=== PATIENT | female | born 1970 | race Caucasian/White ===

== ENCOUNTER 2017-08-12 12:24 | Inpatient (IN) | payer MEDICAID ==
[~2017-08-12] VITALS: Ht 152.4 cm; Wt 77.6 kg
[2017-08-12 12:26] VITALS: BP 130/68
--- NOTE | 2017-08-12 12:31 | NUR ---
46/F BIB C/O EPIGASTRIC PAIN AND NAUSEA X 1 MONTH CRAMPS. BRIGHT RED BLOOD PER RECTUM X 5 DAYS. PT STS HAS HX OF HEMORRHEIDSDENIES N/V/D; SKIN IS PINK/WARM/DRY; AAOX4 WITH EVEN AND STEADY GAIT; LUNGS CLEAR BL; HR EVEN AND REGULAR; PT DENIES ANY FEVER, CP, SOB, OR COUGH AT THIS TIME; PATIENT STATES PAIN OF 10/10 AT THIS TIME; PATIENT POSITIONED FOR COMFORT; HOB ELEVATED; BEDRAILS UP X2; BED DOWN. ER MD MADE AWARE OF PT STATUS.
--- NOTE | 2017-08-12 13:28 | NUR ---
LAB AT BEDSIDE.
--- NOTE | 2017-08-12 13:38 | NUR ---
PT C/O ABD PAIN 07/31; NOTIFIED DR WOOD.
[2017-08-12] MEDS ORDERED: oxyCODONE/APAP 5/325 MG 1 TAB TAB PO ONE (13:40)
--- NOTE | 2017-08-12 13:44 | NUR ---
GAVE PERCOCET 5/325 MG X 2 TABS PO FOR ABD PAIN.
--- NOTE | 2017-08-12 13:45 | NUR ---
PT TAKEN TO CT VIA GUNATY, ACCOMPANIED BY COMPLIANCE ADMINISTRATOR.
--- NOTE | 2017-08-12 13:45 | NUR ---
Osito romo in EDM - 08/12/17 at 1412 by MED1 PT TAKEN TO CT VIA W/C, ACCOMPANIED BY JAVA LEAD ENGINEER.
[2017-08-12 13:53] LABS: APPEARANCE,URINE CLEAR (CLEAR); BILIRUBIN,URINE NEGATIVE (NEGATIVE); BLOOD, URINE NEGATIVE (NEGATIVE); COLOR,URINE YELLOW (YELLOW); LEUKOCYTE ESTERASE ,URINE NEGATIVE (NEGATIVE); NITRITE, URINE NEGATIVE (NEGATIVE); UGLUCOSE 3+ (NEGATIVE)
[2017-08-12 13:55] LABS: BASOPHILS # (AUTO) 0.3 K/uL (0.00-0.22); BASOPHILS % (AUTO) 4.3 % (0.0-2.0); EOSINOPHILS # (AUTO) 0.2 K/uL (0-0.4); EOSINOPHILS % (AUTO) 3.1 % (0.0-4.0); HEMATOCRIT 42.3 % (36-48); HEMOGLOBIN 14.2 g/dL (12.0-16.0); LYMPHOCYTES # (AUTO) 2.6 K/uL (2.5-16.5); LYMPHOCYTES % (AUTO) 42.1 % (20.5-51.1); MEAN CORPUSCULAR HEMOGLOBIN 30 pg (27-31); MEAN CORPUSCULAR HGB CONC 34 g/dL (33-37); MEAN CORPUSCULAR VOLUME 91 fL (80-94); MONOCYTES # (AUTO) 0.4 K/uL (0.8-1.0); MONOCYTES % (AUTO) 7.4 % (1.7-9.3); NEUTROPHILS # (AUTO) 2.6 K/uL (1.8-7.7); NEUTROPHILS % (AUTO) 43.1 % (42.2-75.2); PLATELET COUNT (AUTO) 264 K/uL (140-450); RED BLOOD CELL COUNT(AUTO) 4.67 MIL/uL (4.20-5.40); RED CELL DISTRIBUTION WIDTH 12.9 % (11.6-13.7); WHITE BLOOD COUNT (AUTO) 6.1 K/uL (4.8-10.8)
[2017-08-12 14:00] LABS: CARBON DIOXIDE 28.1 mmol/L (21-32); CREATININE 0.7 mg/dL (0.6-1.3); POTASSIUM 4.1 mmol/L (3.5-5.1)
[2017-08-12 14:06] LABS: ALBUMIN 3.4 g/dL (3.4-5.0); TOTAL BILIRUBIN 0.3 mg/dL (0.0-1.0)
--- NOTE | 2017-08-12 14:11 | NUR ---
PT BACK FROM CT VIA ONIEL, ACCOMPANIED BY WIPING RAG WASHER.
[2017-08-12] MEDS: NACL 0.9% 1,000 ML IV SCH ×2 (15:05→23:46)
[2017-08-12] MEDS ORDERED: DOCUSATE SODIUM 100 MG GELCAP PO PRN (15:05)
[2017-08-12] MEDS ORDERED: ACETAMINOPHEN 325 MG TAB PO PRN (15:05)
[2017-08-12] MEDS ORDERED: ONDANSETRON 4 MG/2 ML VIAL IM/IVP PRN (15:05)
[2017-08-12] MEDS ORDERED: HYDROcodone/APAP 7.5/325 MG 1 TAB PO PRN (15:05)
[2017-08-12] MEDS ORDERED: MORPHINE SULFATE 2 MG/ML SYR IVP PRN (15:05)
--- NOTE | 2017-08-12 15:22 | NUR ---
Patient will be admitted to care of DR HENDERSON. Admited to TELE. Will go to room 111B. Belongings list completed. Report to URSULA PENDLETON.
[2017-08-12] MEDS ORDERED: PANTOPRAZOLE 40 MG TABEC PO SCH (15:40)
[2017-08-12 15:45] VITALS: BP 132/84
--- NOTE | 2017-08-12 15:45 | NUR ---
RECEIVED PT VIA GURNEY, PT IS AMBULATORY A/OX4, PT HAS IV ON THE LEFT FA, PATENT, INTACT, FLUSHING WELL, SKIN IS INTACT, NO S/S OF RESPIRATORY DISTRESS OR DISCOMFORT NOTED, ORIENTED PT TO ROOM, DISCUSSED PLAN OF CARE WITH PT, PT VERBALIZED UNDERSTANDING, SAFETY/FALL PRECAUTIONS ARE IN PLACE, PATIENT'S IS AT BEDSIDE, CALL LIGHT WITHIN REACH, WILL CONTINUE TO MONITOR.
[2017-08-12 15:52] LABS: PROTHROMBIN TIME 9.8 secs (10.8-13.4)
[2017-08-12 16:10] LABS: CHOL/HDL RATIO 5.9 (1-4.5); FREE T4 (FREE THYROXINE) 0.87 ng/dL (0.76-1.46); MAGNESIUM 1.6 mg/dL (1.8-2.4); PHOSPHORUS 3.5 mg/dL (2.5-4.9); THYROID STIMULATING HORMONE 0.8 uIU/mL (0.34-3.74)
--- NOTE | 2017-08-12 16:30 | NUR ---
NOTIFIED DR. GREEN THE PATIENT WAS BRADYCARDIC, DR. GREEN SAID HE WOULD PUT IN ORDER FOR EKG AND CHEST XRAY.
[2017-08-12] MEDS ORDERED: DEXTROSE 50% 50 ML SYR IVP PRN (16:40)
--- NOTE | 2017-08-12 17:00 | NUR ---
PT IS RESTING IN BED, AT THIS TIME, CALL Addendum: 08/12/17 at 7 by Elsie Luke RN PT IS RESTING IN BED AT THIS TIME, CALL LIGHT IS WITHIN REACH.
[2017-08-12] MEDS ORDERED: MECLIZINE 25 MG TAB PO PRN (17:05)
[2017-08-12] MEDS ORDERED: ALBUTEROL 0.083% 2.5 MG/3 ML NEBU INH SCH (19:00)
[2017-08-12] MEDS ORDERED: ALBUTEROL 0.083% 2.5 MG/3 ML NEBU INH PRN (19:00)
--- NOTE | 2017-08-12 19:30 | NUR ---
ENDORSED PT TO LAUNDRY PRESSER NURSE FOR CONTINUITY OF CARE, PT STABLE AT THIS TIME, FAMILY IS AT PT BEDSIDE.
--- NOTE | 2017-08-12 19:32 | NUR ---
RECEIVED REPORT FROM AM NURSE. PT IS AAOX4, FAMILY AT THE BEDSIDE. NO SIGNS OF ACUTE DISTRESS. ON ROOM AIR, AND TELE MONITOR. SKIN TEMPERATURE WARM TO TOUCH. IV ACCESS ASYMPTOMATIC, PATENT AND INTACT. PT IS AMBULATORY. BED ON LOW POSITION, BILATERAL HALF SIDE RAILS UP, CALL LIGHT WITHIN REACH, WILL CONTINUE TO MONITOR.
[2017-08-12 20:00] VITALS: BP 105/63
--- NOTE | 2017-08-12 20:00 | NUR ---
NOTIFIED BY RT ROVERTO OF ECG RESULTS. ABNORMAL ECG WITH POSSIBLE ANTERIOR INFARCT. DR GUSMAN NOTIFIED BY ROVERTO. PER ROVERTO (RT) DR GUSMAN STATED RESULTS ARE FINE, AND NOTHING NEEDED AT THIS TIME.
--- NOTE | 2017-08-12 20:30 | NUR ---
PT UPSET START CRYING IN THE ROOM, WORRY ABOUT HER HEALTH, AT BED SIDE.PLACED PT ON 2 L NC , PT WANTS TO SLEEP, BS ARE BILAT CLEAR AT THIS TIME
[2017-08-12] MEDS: BLOOD GLUCOSE MONITORING 1 DEV DEV FS SCH (20:57)
[2017-08-12] MEDS: ATORVASTATIN 20 MG TAB PO SCH (21:01)
[2017-08-12] MEDS: MAGNESIUM OXIDE 400 MG TAB PO SCH (21:01)
[2017-08-12] MEDS: INSULIN LISPRO SLIDING SCALE 100 UNITS/ML VIAL SUBQ PRN (21:06)
[2017-08-13] VITALS (9 sets, daily range): BP systolic 93–154; BP diastolic 47–86
--- NOTE | 2017-08-13 00:52 | NUR ---
PT IS SLEEPING, EASY TO AROUSE. NO SIGNS OF ACUTE DISTRESS. BED IN LOW POSITION, BILATERAL HALF SIDE RAILS UP, CALL LIGHT WITHIN REACH, WILL CONTINUE TO MONITOR.
[2017-08-13] MEDS: ALBUTEROL SULFATE/IPRATROPIU 3 ML SOL IH SCH ×4 (01:00→19:17)
--- NOTE | 2017-08-13 02:39 | NUR ---
PT IS SLEEPING, EASILY AROUSABLE. NO SIGNS OF ACUTE DISTRESS NOTED, BED IN LOW POSITION, BILATERAL HALF SIDE RAILS UP, CALL LIGHT WITHIN REACH, WILL CONTINUE TO MONITOR.
[2017-08-13] MEDS: BLOOD GLUCOSE MONITORING 1 DEV DEV FS SCH ×4 (06:39→21:16)
[2017-08-13] MEDS: INSULIN LISPRO SLIDING SCALE 100 UNITS/ML VIAL SUBQ PRN ×3 (06:40→21:35)
[2017-08-13 06:43] LABS: BASOPHILS # (AUTO) 0.3 K/uL (0.00-0.22); BASOPHILS % (AUTO) 4.6 % (0.0-2.0); EOSINOPHILS # (AUTO) 0.3 K/uL (0-0.4); EOSINOPHILS % (AUTO) 4.1 % (0.0-4.0); HEMATOCRIT 39.3 % (36-48); HEMOGLOBIN 13.3 g/dL (12.0-16.0); LYMPHOCYTES # (AUTO) 3.3 K/uL (2.5-16.5); LYMPHOCYTES % (AUTO) 51.1 % (20.5-51.1); MEAN CORPUSCULAR HEMOGLOBIN 31 pg (27-31); MEAN CORPUSCULAR HGB CONC 34 g/dL (33-37); MEAN CORPUSCULAR VOLUME 90 fL (80-94); MONOCYTES # (AUTO) 0.4 K/uL (0.8-1.0); MONOCYTES % (AUTO) 6.6 % (1.7-9.3); NEUTROPHILS # (AUTO) 2.1 K/uL (1.8-7.7); NEUTROPHILS % (AUTO) 33.6 % (42.2-75.2); PLATELET COUNT (AUTO) 244 K/uL (140-450); RED BLOOD CELL COUNT(AUTO) 4.36 MIL/uL (4.20-5.40); RED CELL DISTRIBUTION WIDTH 12.8 % (11.6-13.7)
[2017-08-13 07:00] LABS: ANION GAP 8.8 (8-16); CARBON DIOXIDE 27.1 mmol/L (21-32); CREATININE 0.6 mg/dL (0.6-1.3); POTASSIUM 3.9 mmol/L (3.5-5.1)
[2017-08-13 07:05] LABS: MAGNESIUM 1.7 mg/dL (1.8-2.4); PHOSPHORUS 3.5 mg/dL (2.5-4.9)
--- NOTE | 2017-08-13 07:25 | NUR ---
ENDORSED PT TO AM NURSE FOR CONTINUITY OF CARE. PT IS IN STABLE CONDITION.
--- NOTE | 2017-08-13 07:26 | NUR ---
REPORT RECEIVED FROM STOREHOUSE CLERK, PT AWAKE ALERT, RESP EVEN UNLABORED ON ROOM AIR, SKIN WARM DRY COLOR WNL, INITIAL ASSESSMENT COMPLETED, ABD SOFT, NON DISTENDED, NO C/O PAIN OR DISCOMFORT, PLAN OF CARE DISCUSSED, PT VERBALIZED FULL UNDERSTANDING, CALL PAGE WITHIN REACH, SIDE RAILS UP, BED LOCKED IN LOW POSITION, WILL CONTINUE TO MONITOR.
[2017-08-13 07:28] LABS: WHITE BLOOD COUNT (AUTO) 6.4 K/uL (4.8-10.8)
[2017-08-13] MEDS: MAGNESIUM OXIDE 400 MG TAB PO SCH ×2 (08:50→21:07)
[2017-08-13] MEDS: PANTOPRAZOLE 40 MG TABEC PO SCH (08:50)
[2017-08-13] MEDS: NACL 0.9% 1,000 ML IV SCH ×2 (08:50→16:05)
--- NOTE | 2017-08-13 08:50 | NUR ---
PT SLEEPING QUIETLY IN NAD, RESP EVEN UNLABORED, SKIN WARM DRY COLOR WNL, AROUSES EASILY, SCHEDULED MEDS GIVEN, YANN WELL.
--- NOTE | 2017-08-13 10:05 | NUR ---
PATIENT HAS BEEN SCREENED AND CATEGORIZED HIGH NUTRITION RISK. PATIENT WILL BE SEEN WITHIN 1-2 DAYS OF ADMISSION. 08/13/17-08/14/[address]
[2017-08-13] MEDS ORDERED: ALBUTEROL SULFATE/IPRATROPIU 3 ML SOL IH PRN (10:10)
--- NOTE | 2017-08-13 10:48 | NUR ---
CALLED TO BEDSIDE BY WHO STATES PT WAS SLEEPING BUT SUDDENLY STARTED HAVING DIFFICULTY BREATHING, PT WITH LABORED RAPID BREATHING, ARCHING BACK, EYES ROLLING BACK, DOES NOT RESPOND TO VERBAL COMMANDS, RAPID RESPONSE TEAM CALLED AT THIS TIME, SKIN WARM DRY COLOR WNL, NO CYANOSIS NOTED, PT ON NC O2 2L, VITALS TAKEN BP 138/86, HR78, RR 32, O2SAT 93%, TEMP 98.4, UPON ARRIVAL OF RAPID RESPONSE TEAM, PT PLACED ON NON REBREATHER MASK, EKG DONE, ABG DRAWN, CXRAY DONE.
[2017-08-13 11:12] LABS: BASOPHILS # (AUTO) 0.3 K/uL (0.00-0.22); BASOPHILS % (AUTO) 4.4 % (0.0-2.0); EOSINOPHILS # (AUTO) 0.2 K/uL (0-0.4); EOSINOPHILS % (AUTO) 2.5 % (0.0-4.0); HEMATOCRIT 43.6 % (36-48); HEMOGLOBIN 14.6 g/dL (12.0-16.0); LYMPHOCYTES % (AUTO) 49.3 % (20.5-51.1); MEAN CORPUSCULAR HEMOGLOBIN 30 pg (27-31); MEAN CORPUSCULAR HGB CONC 33 g/dL (33-37); MEAN CORPUSCULAR VOLUME 90 fL (80-94); MONOCYTES # (AUTO) 0.5 K/uL (0.8-1.0); MONOCYTES % (AUTO) 8.3 % (1.7-9.3); NEUTROPHILS # (AUTO) 2.2 K/uL (1.8-7.7); NEUTROPHILS % (AUTO) 35.5 % (42.2-75.2); PLATELET COUNT (AUTO) 259 K/uL (140-450); RED BLOOD CELL COUNT(AUTO) 4.83 MIL/uL (4.20-5.40); RED CELL DISTRIBUTION WIDTH 12.9 % (11.6-13.7); WHITE BLOOD COUNT (AUTO) 6.2 K/uL (4.8-10.8)
--- NOTE | 2017-08-13 11:15 | NUR ---
PT NOW AWAKE ALERT, SPEAKING CLEARLY WITH RESIDENT MD IN GREEK WITHOUT PROBLEM, C/O EPIGASTRIC PAIN, RESP EVEN UNLABORED PLACED BACK ON NC, PT REMAINS ON LIP OF SHANK CUTTER, WILL CONTINUE TO MONITOR.
[2017-08-13] MEDS ORDERED: ASPIRIN 81 MG TAB.CHEW PO SCH (11:30)
[2017-08-13] MEDS ORDERED: KETOROLAC 30 MG/ML VIAL IVP PRN (11:35)
--- NOTE | 2017-08-13 11:45 | NUR ---
PT UNABLE TO URINATE ON BEDPAN, PT STATES SHE FEELS THE URGE BUT UNABLE TO VOID, DR MARTINEZ NOTIFIED, PT REQUESTS TO GET UP TO BATHROOM BUT UNABLE TO AMBULATE AT THIS TIME WITH WEAKNESS, PT ASSISTED UP TO BEDSIDE COMMODE, WAS ABLE TO VOID. PT PLACED BACK ON BED, PT REMAINS ON CARDIAC MONTIOR, RESP EVEN UNLABORED NOW, WILL CONTINUE TO MONTIOR.
--- NOTE | 2017-08-13 11:55 | NUR ---
DR LARSON AT BEDSIDE,
--- NOTE | 2017-08-13 12:22 | NUR ---
US AT BEDSIDE
[2017-08-13] MEDS: LACTULOSE 20 GM/30 ML UDC PO SCH ×3 (13:07→21:07)
[2017-08-13] MEDS: SENNA 8.6 MG TAB PO SCH ×2 (13:07→17:44)
--- NOTE | 2017-08-13 13:15 | NUR ---
FAMILY AT BEDSIDE, PT SITTING UP TALKING WITHOUT PROBLEM, STATES EPIGASTRIC PAIN HAS IMPROVED NOW, PT MADE AWARE OF NEED FOR URINE AND STOOL SAMPLES, PT VERBALIZED FULL UNDERSTANDING
--- NOTE | 2017-08-13 15:00 | NUR ---
PT SLEEPING QUIETLY IN NAD, RESP EVEN UNLABORED, SKIN WARM DRY COLOR WNL, FRIEND AT BEDSIDE, NO IMMEDIATE NEEDS IDENTIFIED, PT REMAINS ON ASSISTANT ACCOUNT EXECUTIVE, WILL CONTINUE TO MONITOR.
--- NOTE | 2017-08-13 15:33 | NUR ---
08/13/17 RD INITIAL ASSESSMENT COMPLETED PLEASE REFER TO NUTRITION ASSESSMENT UNDER CARE ACTIVITY FOR ESTIMATED NUTRITIONAL NEEDS. 1. CONTINUE CLEAR LIQUID DIET, ADVANCE TOLERATED TO 60G CONSISTENT CARBOHYDRATE DIET 2. PROVIDE NUTRITION EDUCATION NEEDED 3. RD TO FOLLOW UP WITHIN 2-3 DAYS; HIGH RISK KARAN KAUFMAN RD
[2017-08-13 15:51] LABS: BARBITURATE, URINE NEG. ng/ml (NEG <=200); BENZODIAZEPINE, URINE NEG. ng/mL (NEG <=200); CANNABINOID, URINE NEG. ng/mL (NEG <=50); COCAINE, URINE NEG. ng/mL (NEG <=300); OPIATE, URINE NEG. ng/mL (NEG <=2000); PHENCYCLIDINE SCREEN,URINE NEG. ng/mL (NEG <=25)
--- NOTE | 2017-08-13 17:45 | NUR ---
DUE MEDS GIVEN, LORELEI STARTED, PT EDUCATED ON MEDS, PT VERBALIZED FULL UNDERSTANDING, PT ALSO DECLINED USE OF PHONE TRANSLATER SERVICE BEFORE SIGNING CONSENTS FOR EGD AND COLONOSCOPY. CONSENT FORMS SIGNED.
[2017-08-13] MEDS ORDERED: BOWEL EVACUANT DRINK 4,000 ML PDS PO SCH (18:00)
--- NOTE | 2017-08-13 19:26 | NUR ---
REPORT GIVEN TO RENTAL MANAGEMENT TRAINEE NURSE, PT INSTABLE CONDITION.
--- NOTE | 2017-08-13 20:26 | NUR ---
RECEIVED REPORT FROM AM NURSE, PT IS AAOX4, NO SIGNS OF ACUTE DISTRESS NOTED. ON 02 2L VIA NC. PT DENIES ANY PAIN OR DIFFICULTY BREATHING AT THIS TIME. IV ACCESS INTACT, PATENT AND ASYMPTOMATIC. BOWEL SOUNDS PRESENT ON ALL FOUR QUADRANTS. BED SIDE COMMODE IN PLACE. SKIN COLOR APPROPRIATE TO ETHNICITY. PLAN OF CARE DISCUSSED, PT VERBALIZED UNDERSTANDING. FAMILY MEMBER AT THE BEDSIDE. BED IN LOW POSITION, BILATERAL HALF SIDE RAILS UP, CALL LIGHT WITHIN REACH, WILL CONTINUE TO MONITOR.
[2017-08-13] MEDS: ATORVASTATIN 20 MG TAB PO SCH (21:06)
--- NOTE | 2017-08-13 21:27 | NUR ---
EDUCATION GIVEN ON DIABETES MANAGEMENT, SYMPTOMS, AND PROPER DIET. DIABETES AND SICK MANAGEMENT PAPERWORK GIVEN TO PT, SIGNED PT INSTRUCTION PAGE. PT VERBALIZED UNDERSTANDING.
[2017-08-13] MEDS ORDERED: MAGNESIUM CITRATE 300 ML BTL PO SCH (23:00)
[2017-08-14] VITALS: BP 117/67
[2017-08-14] MEDS: NACL 0.9% 1,000 ML IV SCH (01:01)
--- NOTE | 2017-08-14 03:18 | NUR ---
PT SLEEPING, EASY TO AROUSE. NO SIGNS OF ACUTE DISTRESS NOTED, BED IN LOW POSITION, BILATERAL HALF SIDE RAILS UP, CALL LIGHT WITHIN REACH.
[2017-08-14 04:00] VITALS: BP 104/65
[2017-08-14 06:20] LABS: T4 (THYROXINE) 6.1 ug/dL (4.5-12.0)
[2017-08-14 06:48] LABS: BASOPHILS # (AUTO) 0.2 K/uL (0.00-0.22); BASOPHILS % (AUTO) 3.6 % (0.0-2.0); EOSINOPHILS # (AUTO) 0.2 K/uL (0-0.4); EOSINOPHILS % (AUTO) 3.4 % (0.0-4.0); HEMATOCRIT 41.3 % (36-48); HEMOGLOBIN 13.8 g/dL (12.0-16.0); LYMPHOCYTES # (AUTO) 2.4 K/uL (2.5-16.5); LYMPHOCYTES % (AUTO) 34.4 % (20.5-51.1); MEAN CORPUSCULAR HEMOGLOBIN 31 pg (27-31); MEAN CORPUSCULAR HGB CONC 34 g/dL (33-37); MEAN CORPUSCULAR VOLUME 91 fL (80-94); MONOCYTES # (AUTO) 0.5 K/uL (0.8-1.0); MONOCYTES % (AUTO) 7.6 % (1.7-9.3); NEUTROPHILS # (AUTO) 3.5 K/uL (1.8-7.7); PLATELET COUNT (AUTO) 253 K/uL (140-450); RED BLOOD CELL COUNT(AUTO) 4.54 MIL/uL (4.20-5.40); RED CELL DISTRIBUTION WIDTH 13.1 % (11.6-13.7); WHITE BLOOD COUNT (AUTO) 6.9 K/uL (4.8-10.8)
[2017-08-14 07:04] LABS: ANION GAP 11.9 (8-16); CARBON DIOXIDE 24.3 mmol/L (21-32); CREATININE 0.6 mg/dL (0.6-1.3); POTASSIUM 4.2 mmol/L (3.5-5.1)
[2017-08-14] MEDS: BLOOD GLUCOSE MONITORING 1 DEV DEV FS SCH ×3 (07:07→16:51)
[2017-08-14] MEDS: ALBUTEROL SULFATE/IPRATROPIU 3 ML SOL IH SCH ×2 (07:23→13:27)
--- NOTE | 2017-08-14 07:23 | NUR ---
ENDORSED PT TO AM NURSE FOR CONTINUITY OF CARE. PT IN STABLE CONDITION.
--- NOTE | 2017-08-14 07:23 | NUR ---
REPORT RECEIVED FROM HOUSEHOLD APPLIANCE ASSEMBLER NURSE, PT SLEEPING QUIETLY RESP EVEN UNLABORED ON ROOM AIR, SKIN WARM DRY COLOR WNL, PT AROUSES EASILY, AT BEDSIDE, PT DENIES PAIN OR DISCOMFORT, PLAN OF CARE REVIEWED, PT VERBALIZED FULL UNDERSTANDING, CALL PAGE WITHIN REACH, SIDE RAILS UP, BED LOCKED IN LOW POSITION, PT ON EQUAL EMPLOYMENT OPPORTUNITY OFFICER, WILL CONTINUE TO MONITOR.
--- NOTE | 2017-08-14 07:50 | NUR ---
PT UP OUT OF BED WITHOUT ASSIST, AMBULATES TO BATHROOM WITH STEADY GAIT, BMX1, STOOL CLEAR YELLOW LIQ WITH SMALL SEDIMENTS, PLAN OF CARE DISCUSSED, AT BEDSIDE, WILL CONTINUE TO MONITOR.
[2017-08-14 08:00] VITALS: BP 124/74
[2017-08-14] MEDS ORDERED: OMEP20TC12 PO (08:41)
[2017-08-14] MEDS: LACTULOSE 20 GM/30 ML UDC PO SCH ×2 (08:47→13:00)
[2017-08-14] MEDS: SENNA 8.6 MG TAB PO SCH ×2 (08:47→13:00)
[2017-08-14] MEDS: PANTOPRAZOLE 40 MG TABEC PO SCH (08:47)
[2017-08-14] MEDS: MAGNESIUM OXIDE 400 MG TAB PO SCH (08:48)
--- NOTE | 2017-08-14 08:50 | NUR ---
DUE MEDS GIVEN, PT YANN WELL, SAFETY MEASURES IN PLACE, WILL CONTINUE TO MONITOR.
[2017-08-14] MEDS ORDERED: ASPIRIN 81 MG TAB.CHEW PO SCH (09:00)
[2017-08-14] MEDS ORDERED: fentaNYL 0.05 MG/ML VIAL ONE (10:03)
[2017-08-14] MEDS ORDERED: diphenhydrAMINE 50 MG/ML VIAL ONE (10:03)
[2017-08-14] MEDS ORDERED: MIDAZOLAM 2 MG/2 ML VIAL ONE (10:03)
--- NOTE | 2017-08-14 10:06 | NUR ---
PT TO OR FOR EGD AND COLONOSCOPY IN HOSPITAL BED WITH OR NURSE.
[2017-08-14] MEDS ORDERED: SERT50TA PO (10:55)
[2017-08-14 11:10] VITALS: BP 112/74
--- NOTE | 2017-08-14 11:15 | NUR ---
PT BACK FROM OR, REPORT RECEIVED FROM OR NURSE, PT AWAKE, SLEEPY, DENIES PAIN, VITALS TAKEN, PLACED BACK ON DIAMOND PICKER, AT BEDSIDE, PT REORIENTED TO ROOM, CALL PAGE WITHIN REACH, SIDE RAILS UP, BED LOCKED IN LOW POSITION,WILL CONTINUE TO MONITOR.
[2017-08-14] MEDS ORDERED: METF850T PO (11:55)
[2017-08-14] MEDS ORDERED: GLIP5TAB13 PO (11:55)
[2017-08-14 12:00] VITALS: BP 110/71
[2017-08-14] MEDS ORDERED: INFLUENZA VIRUS VACCINE QUAD 0.5 ML SYR IMVAC SCH (12:00)
[2017-08-14] MEDS ORDERED: CLAR500T PO (12:10)
[2017-08-14] MEDS ORDERED: AMOX875T3 PO (12:10)
[2017-08-14] MEDS ORDERED: LACT10CA1 PO (12:10)
--- NOTE | 2017-08-14 13:03 | NUR ---
PT UP OUT OF BED WITH MINIMAL ASSIST, AMBULATES TO BATHROOM WITH STEADY GAIT, PT REFUSES TO WALK AROUND THE HALLWAY BECAUSE SHE FEELS "DIZZY", WILL TRY AT LATER TIME TO AMBULATE, REMAINS AT BEDSIDE, NO C/O PAIN, ABD ROUND, SOFT, NON TENDER, WILL CONTINUE TO MONITOR.
[2017-08-14] MEDS ORDERED: fentaNYL 0.05 MG/ML VIAL IVP ONE (13:10)
[2017-08-14] MEDS ORDERED: MIDAZOLAM 2 MG/2 ML VIAL IVP ONE (13:10)
[2017-08-14] MEDS ORDERED: MECLIZINE 25 MG TAB PO PRN (13:25)
--- NOTE | 2017-08-14 15:15 | NUR ---
FLU SHOT GIVEN REQUESTED BY PT TO RIGHT DELTOID, PT YANN WELL, ENCOURAGED PT TO GET OUT OF BED FOR AMBULATION, PT DENIES PAIN OR DISCOMFORT, RESP EVEN UNLABORED ON ROOM AIR, PT REFUSED AT THIS TIME, PT STATES SHE IS SLEEPY AND WANTS TO WAIT FOR HER TO COME BACK, PT AGREES TO TRY GETTING UP IN 30MIN, WILL ATTEMPT AGAIN IN 30MIN. Addendum: 08/14/17 at 1521 by Jenny Vasquez RN PT TOLERATING CLEAR LIQ WELL. DENIES NAUSEA OR VOMITING.
[2017-08-14] MEDS ORDERED: ACETAMINOPHEN EXTRA STRENGTH 500 MG TAB PO PRN (16:30)
[2017-08-14] MEDS ORDERED: ACET-2863 PO (16:36)
[2017-08-14] MEDS ORDERED: DOCU-299 PO (16:37)
--- NOTE | 2017-08-14 16:40 | NUR ---
PT UP OUT OF BED WITH MINIMAL ASSIST, AMBULATES SLOWLY, PT STATES SHE FEELS OK TO GO HOME, REQUESTS TO SHOWER BEFORE DC HOME, DAUGHTER ASSISTING WITH SHOWER PER PT REQUEST. WILL DC WHEN DONE WITH SHOWER.
--- NOTE | 2017-08-14 17:25 | NUR ---
DC INSTRUCTION GIVEN AND EXPLAINED TO PT VIA TELEPHONE RESPIRATORY THERAPY MANAGER #[id number], PT VERBALIZED FULL UNDERSTANDING, IV DC'D CATH TIP INTACT, BLEEDING CONTROLLED, PT UP AMBULATING WELL AFTER SHOWER WITHOUT PROBLEM, DC HOME NOW WITH AND FAMILY, PT ESCORTED TO LOBBY IN WHEEL CHAIR.
--- NOTE | 2017-08-14 17:30 | NUR ---
PT LEFT WITHOUT NORCO PRESCRIPTION, CALLED HER PHONE AND PHONE AND LEFT MESSAGE.
== END 2017-08-14 17:25 | disposition home or self-care (01) | DRG 241 ==
LOC: MED 12:24 → MTU 15:12
PROVIDERS: ADMIT Family Medicine; ATTEND Family Medicine
PROC: 0DJD8ZZ Inspection of Lower Intestinal Tract, Via Natural or Artificial Opening Endoscopic (ICD-10-PCS; 2017-08-14)
PROC: 3E0234Z Introduction of Serum, Toxoid and Vaccine into Muscle, Percutaneous Approach (ICD-10-PCS; principal; 2017-08-14 10:00)
PROC: 0DB78ZX Excision of Stomach, Pylorus, Via Natural or Artificial Opening Endoscopic, Diagnostic (ICD-10-PCS; 2017-08-14 10:00)
DX: K29.70 Gastritis, unspecified, without bleeding (principal); E87.3 Alkalosis; E11.51 Type 2 diabetes mellitus with diabetic peripheral angiopathy without gangrene; E11.65 Type 2 diabetes mellitus with hyperglycemia; K64.8 Other hemorrhoids; E83.42 Hypomagnesemia; E66.9 Obesity, unspecified; E78.5 Hyperlipidemia, unspecified; R00.1 Bradycardia, unspecified; B96.81 Helicobacter pylori [H. pylori] as the cause of diseases classified elsewhere; F41.0 Panic disorder [episodic paroxysmal anxiety]; F41.9 Anxiety disorder, unspecified; Z98.891 History of uterine scar from previous surgery; Z23 Encounter for immunization; Z68.33 Body mass index [BMI] 33.0-33.9, adult
CPT/HCPCS: 36415; 36600; 71010; 80048; 80053; 80305; 81003; 82150; 82272; 82803; 82948; 83036; 83690; 83735; 83880; 84100; 84436; 84439; 84443; 84479; 84484; 85025; 85379; 85610; 85730; 86677; 87081; 90658; 93005; 93925; 93970; 94640; 99285; J1200; J1815; J1885; J2250; J3010; J7030; J7620; J8597; Q0092

== ENCOUNTER 2020-10-13 00:12 | Emergency (ER) | payer MEDICAID ==
[~2020-10-13] VITALS: Ht 154.9 cm; Wt 72.6 kg
[~2020-10-13 00:12] MED LIST: AMOX875T3 PO; CLAR500T14 PO; DOCU-299 PO; GLIP5TAB13 PO; HYDR-5123 PO; LACT10CA1 PO; METF850T PO; OMEP20TC12 PO; SERT50TA PO
[2020-10-13 00:30] VITALS: BP 129/55
--- NOTE | 2020-10-13 00:30 | NUR ---
TO TENT AMBULATORY
[2020-10-13 01:25] VITALS: BP 129/55
--- NOTE | 2020-10-13 01:25 | NUR ---
SEEN ANS EXAMINED BY SURESH WITH ORDERS AND CARRIED OUT
[2020-10-13 01:48] LABS: APPEARANCE,URINE CLEAR (CLEAR); BILIRUBIN,URINE NEGATIVE (NEGATIVE); BLOOD, URINE NEGATIVE (NEGATIVE); COLOR,URINE YELLOW (YELLOW); LEUKOCYTE ESTERASE ,URINE NEGATIVE (NEGATIVE); NITRITE, URINE NEGATIVE (NEGATIVE); UGLUCOSE 2+ (NEGATIVE)
[2020-10-13 01:52] LABS: BASOPHILS % (AUTO) 0.6 % (0.0-2.0); EOSINOPHILS # (AUTO) 0.1 K/uL (0-0.4); EOSINOPHILS % (AUTO) 2.2 % (0.0-4.0); HEMATOCRIT 43.5 % (36-48); HEMOGLOBIN 14.5 g/dL (12.0-16.0); LYMPHOCYTES # (AUTO) 2.7 K/uL (2.5-16.5); LYMPHOCYTES % (AUTO) 40.2 % (20.5-51.1); MEAN CORPUSCULAR HEMOGLOBIN 31 pg (27-31); MEAN CORPUSCULAR HGB CONC 33 g/dL (33-37); MEAN CORPUSCULAR VOLUME 91.6 fL (80-94); MONOCYTES # (AUTO) 0.4 K/uL (0.8-1.0); MONOCYTES % (AUTO) 6.2 % (1.7-9.3); NEUTROPHILS # (AUTO) 3.4 K/uL (1.8-7.7); NEUTROPHILS % (AUTO) 50.8 % (42.2-75.2); PLATELET COUNT (AUTO) 273 K/uL (140-450); RED BLOOD CELL COUNT(AUTO) 4.74 MIL/uL (4.20-5.40); RED CELL DISTRIBUTION WIDTH 13.8 % (11.6-13.7); WHITE BLOOD COUNT (AUTO) 6.7 K/uL (4.8-10.8)
[2020-10-13 02:08] LABS: ALBUMIN 4.3 g/dL (3.4-5.0); ANION GAP 12.5 (8-16); CARBON DIOXIDE 30.3 mmol/L (21-32); CREATININE 0.6 mg/dL (0.6-1.3); POTASSIUM 3.8 mmol/L (3.5-5.1); TOTAL BILIRUBIN 0.3 mg/dL (0.0-1.0)
--- NOTE | 2020-10-13 07:01 | NUR ---
Patient discharged with v/s stable. Written and verbal after care instructions given and explained. Patient alert, oriented and verbalized understanding of instructions. Ambulatory with steady gait. All questions addressed prior to discharge. ID band removed. Patient advised to follow up with PMD. Rx of Zofran ODT given. Patient educated on indication of medication including possible reaction and side effects. Opportunity to ask questions provided and answered.
== END 2020-10-13 07:01 | disposition home or self-care (01) ==
LOC: MED 00:12
DX: U07.1 COVID-19 (principal); Z79.899 Other long term (current) drug therapy
CPT/HCPCS: 36415; 71045; 80053; 81003; 84484; 85025; 85379; 87426; 93005; 99285; U0003

== ENCOUNTER 2022-06-21 08:57 | Emergency (ER) | payer MEDICAID, OTHER ==
[~2022-06-21] VITALS: Ht 150.4 cm; Wt 82.2 kg
[~2022-06-21 08:57] MED LIST changes: +HYDR-5080 PO; -HYDR-5123 PO; +METF-713 PO; -METF850T PO; +OMEP-278 PO; -OMEP20TC12 PO
--- NOTE | 2022-06-21 09:15 | NUR ---
Osito romo in [facility] - 06/21/22 at 0930 by DAVID PT W/C ASSISTED TO .
[2022-06-21 09:22] VITALS: BP 142/83
--- NOTE | 2022-06-21 09:30 | NUR ---
PT AMB TO BED 4.
[2022-06-21] MEDS ORDERED: TETRACAINE HCL/PF 0.5% OPTH 4 ML BTL ONE (09:39)
[2022-06-21] MEDS ORDERED: FLUORESCEIN OPTH STRIP 1 MG ONE (09:39)
--- NOTE | 2022-06-21 09:40 | NUR ---
WOODLAMP AND MEDICATION SET UP AT BEDSIDE
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
[2022-06-21] MEDS: FLUORESCEIN OPTH STRIP 1 MG OP ONE (09:52)
[2022-06-21] MEDS: TETRACAINE HCL/PF 0.5% OPTH 4 ML BTL OP ONE (09:53)
--- NOTE | 2022-06-21 11:10 | NUR ---
ER AT BEDSIDE
[2022-06-21] MEDS ORDERED: ACET-10509 PO (11:27)
[2022-06-21] MEDS ORDERED: ERYT5OIN51 OP (11:27)
[2022-06-21 11:38] VITALS: BP 142/83
--- NOTE | 2022-06-21 11:39 | NUR ---
Patient discharged with v/s stable. Written and verbal after care instructions given and explained. Patient alert, oriented and verbalized understanding of instructions. Ambulatory with steady gait. All questions addressed prior to discharge. ID band removed. Patient advised to follow up with PMD. Rx of TYLENOL, ERYTHROMYCIN given. Patient educated on indication of medication including possible reaction and side effects. Opportunity to ask questions provided and answered.
== END 2022-06-21 11:39 | disposition home or self-care (01) ==
LOC: MED 08:57
DX: H57.12 Ocular pain, left eye (principal); E11.9 Type 2 diabetes mellitus without complications; Z79.84 Long term (current) use of oral hypoglycemic drugs; Z79.899 Other long term (current) drug therapy
CPT/HCPCS: 99283